=== PATIENT | female | born 1985 | race Caucasian/White ===

== ENCOUNTER 2017-07-26 10:18 | Inpatient (IN) | payer MEDICAID ==
[2017-07-26] MEDS ORDERED: Methylergonovine 0.2 MG/1 ML Amp IM PRN (10:39)
[2017-07-26] MEDS ORDERED: Butorphanol 1 MG/ML SDV IVPUSH PRN (10:39)
[2017-07-26] MEDS ORDERED: Water For Irrigation,Sterile 1,000 ML Container IRR PRN (10:39)
[2017-07-26] MEDS ORDERED: Misoprostol 200 MCG Tab PO PRN (10:39)
[2017-07-26] MEDS ORDERED: Lidocaine 1% 50 ML MDV INJECT PRN (10:39)
[2017-07-26] MEDS ORDERED: Sodium Chloride 0.9% 2.5 ML Syringe FLUSH PRN (10:39)
[2017-07-26] MEDS ORDERED: Sodium Chloride 0.9% 10 ML Syringe FLUSH PRN (10:39)
[2017-07-26] MEDS ORDERED: Carboprost Tromethamine 250 MCG/1 ML Amp IM PRN (10:39)
[2017-07-26] MEDS ORDERED: Oxytocin/Lactated Ringers 30 UNIT/500 ML BAG IV SCH ×2 (10:45)
[2017-07-26] MEDS ORDERED: Ampicillin 2 GM in Sodium Chloride 0.9% 100 ML IV ONE (11:00)
[2017-07-26] MEDS: Lactated Ringers 1,000 ML IV SCH ×3 (11:20→16:46)
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
[2017-07-26] MEDS ORDERED: Ampicillin 1 GM in Sodium Chloride 0.9% 50 ML IV SCH (15:00)
[2017-07-26] MEDS ORDERED: Ropivacaine HCl/PF 100 ML ONE (15:59)
[2017-07-26] MEDS ORDERED: fentaNYL 100 MCG/2 ML SDV ONE (15:59)
[2017-07-26] MEDS ORDERED: Acetaminophen 500 MG Tab PO PRN ×2 (18:03)
[2017-07-26] MEDS ORDERED: Witch Hazel Medicated Pads 40/Jar TOP PRN (18:03)
[2017-07-26] MEDS ORDERED: Lanolin 100% Cream 7 GM Tube TOP PRN (18:03)
[2017-07-26] MEDS ORDERED: Docusate Sodium 100 MG Cap PO PRN (18:03)
[2017-07-26] MEDS ORDERED: oxyCODONE 5 MG Tab PO PRN (18:03)
[2017-07-26] MEDS ORDERED: Ibuprofen 400 MG Tab PO PRN (18:03)
[2017-07-26] MEDS ORDERED: Benzocaine/Menthol 20%-0.5% Spray 78 GM Cannister TOP PRN (18:03)
[2017-07-26] MEDS ORDERED: Bisacodyl 10 MG Supp RECTAL PRN (18:03)
[2017-07-26] MEDS: Ibuprofen 800 MG Tab PO PRN (22:46)
--- NOTE | 2017-07-27 06:29 | PCM48HPAN ---
Post Anesthesia Note - EVALUATION WITHIN 48HRS OF ANESTHETIC Vital Signs in Normal Range: Yes Patient Participated in Evaluation: Yes Respiratory Function Stable: Yes Airway Patent: Yes Cardiovascular Function Stable: Yes Hydration Status Stable: Yes Pain Control Satisfactory: Yes Nausea and Vomiting Control Satisfactory: Yes Mental Status Recovered: Yes
--- NOTE | 2017-07-27 06:29 | PCM.POSTAN ---
POST ANESTHESIA ASSESSMENT - MENTAL STATUS Mental Status: Alert - RESPIRATORY Respiratory Status: Respiratory Rate WNL, O2 Saturation Stable - CARDIOVASCULAR CV Status: Pulse Rate WNL, Blood Pressure Stable - GASTROINTESTINAL GI Status: No Symptoms - POST OP HYDRATION Hydration Status: Adequate & Stable
[2017-07-27] MEDS: Ibuprofen 800 MG Tab PO PRN ×2 (06:43→14:34)
--- NOTE | 2017-07-27 08:03 | PCM.PNPP ---
<Babar Salazar - Last Filed: 07/27/17 08:04> - General Info Date of Service: 07/27/17 Admission Dx/Problem (Free Text): 40/0 weeks gestation elective induction of labor Subjective Update: Patient is doing well today without concerns. Pain is well controlled with Motrin and Tylenol. Patient is urinating without difficulty and has had a bowel movement. without difficulty. Pt denies chest pain, shortness of breath, fever, or chills. Functional Status: Reports: Pain Controlled, Tolerating Diet, Ambulating, Urinating - Review of Systems General: Reports: No Symptoms Pulmonary: Reports: No Symptoms Cardiovascular: Reports: No Symptoms Gastrointestinal: Reports: No Symptoms Genitourinary: Reports: No Symptoms - General Info Date of Service: 07/27/17 - Patient Data Vital Signs - Most Recent: Last Vital Signs Temp 36.9 C 07/27/17 01:00 Pulse 80 07/27/17 01:00 Resp 16 07/27/17 01:00 BP 116/59 L 07/27/17 01:00 Pulse Ox 97 07/27/17 01:00 Weight - Most Recent: 92.079 kg Lab Results - Last 24 Hours: Laboratory Results - last 24 hr 07/26/17 07/26/17 07/27/17 Range/Units 11:10 11:10 04:37 WBC 10.10 (4.0-11.0) K/uL RBC 4.03 L (4.30-5.90) M/uL Hgb 10.8 L 10.7 L (12.0-16.0) g/dL Hct 34.1 L 34.2 L (36.0-46.0) % MCV 84.6 (80.0-98.0) fL MCH 26.8 L (27.0-32.0) pg MCHC 31.7 (31.0-37.0) g/dL RDW Std Deviation 48.9 (28.0-62.0) fl RDW Coeff of Lit 16 H (11.0-15.0) % Plt Count 141 L (150-400) K/uL MPV 11.70 (7.40-12.00) fL Nucleated RBC % 0.0 /100WBC Nucleated RBCs # 0 K/uL Blood Type A POSITIVE Antibody Screen NEGATIVE Med Orders - Current: Current Medications Acetaminophen (Tylenol Extra Strength) 500 mg PO Q4H PRN PRN Reason: Pain Last Admin: 07/27/17 01:01 Dose: 500 mg Acetaminophen (Tylenol Extra Strength) 1,000 mg PO Q4H PRN PRN Reason: Pain Benzocaine/Menthol (Dermoplast Pain Relief 20%-0.5% [place]) 78 gm TOP ASDIRECTED PRN PRN Reason: Perineal Comfort Measure Bisacodyl (Dulcolax) 10 mg RECTAL .ONCE PRN PRN Reason: Constipation Carboprost Tromethamine (Hemabate Ds) 250 mcg IM ASDIRECTED PRN PRN Reason: Post Hemorrhage Docusate Sodium (Colace) 100 mg PO BID PRN PRN Reason: Constipation Emollient Ointment (Lansinoh Hpa) 0 gm TOP ASDIRECTED PRN PRN Reason: Sore Nipples Lactated Ringer's (Ringers, Lactated) 1,000 mls @ 150 mls/hr IV ASDIRECTED JOAN Last Admin: 07/26/17 16:46 Dose: 150 mls/hr Oxytocin/Lactated Ringer's (Pitocin In Lr 30 Units/500 Ml) 30 unit in 500 mls @ 2 mls/hr IV TITRATE JOAN; 2 MUNITS/MIN PRN Reason: Protocol Last Titration: 07/26/17 16:28 Dose: 10 munits/min, 10 mls/hr Ibuprofen (Motrin) 400 mg PO Q4H PRN PRN Reason: Pain Ibuprofen (Motrin) 800 mg PO Q6H PRN PRN Reason: Pain Last Admin: 07/27/17 06:43 Dose: 800 mg Methylergonovine Maleate (Methergine) 0.2 mg IM ASDIRECTED PRN PRN Reason: Post Hemorrhage Misoprostol (Cytotec) 200 mcg PO .ONCE PRN PRN Reason: Post Hemorrhage Oxycodone HCl (Oxycodone) 5 mg PO Q2H PRN PRN Reason: Pain Last Admin: 07/27/17 01:02 Dose: 5 mg Sodium Chloride (Saline Flush) 10 ml FLUSH ASDIRECTED PRN PRN Reason: Keep Vein Open Sodium Chloride (Saline Flush) 2.5 ml FLUSH ASDIRECTED PRN PRN Reason: Keep Vein Open Witch Roopa (Tucks) 1 pad TOP ASDIRECTED PRN PRN Reason: comfort care Discontinued Medications Butorphanol Tartrate (Stadol) 1 mg IVPUSH Q1H PRN PRN Reason: Pain Fentanyl (Sublimaze) Confirm Administered Dose 100 mcg .ROUTE .STK-MED ONE Stop: 07/26/17 16:00 Ampicillin Sodium 2 gm/ Sodium (Chloride) 100 mls @ 200 mls/hr IV ONETIME ONE Stop: 07/26/17 11:29 Last Admin: 07/26/17 11:40 Dose: 200 mls/hr Ampicillin Sodium 1 gm/ Sodium (Chloride) 50 mls @ 100 mls/hr IV Q4H JOAN Last Admin: 07/26/17 15:41 Dose: 100 mls/hr Oxytocin/Lactated Ringer's (Pitocin In Lr 30 Units/500 Ml) 30 unit in 500 mls @ 999 mls/hr IV TITRATE JOAN PRN Reason: 999 MUNITS/MIN Stop: 07/26/17 11:16 Ropivacaine (Naropin 0.2%) Confirm Administered Dose 100 mls @ as directed .ROUTE .STK-MED ONE Stop: 07/26/17 16:00 Lidocaine HCl (Xylocaine 1%) 50 ml INJECT .ONCE PRN PRN Reason: Laceration repair Sterile Water (Sterile Water For Irrigation) 1,000 ml IRR ASDIRECTED PRN PRN Reason: delivery - Infant Interaction Disposition, : [place] in Room with Family Interaction: Holding Infant Infant Feeding: Breastfed Infant; Nursed Well Support Person: , Other (see below) (Daughter) - Recovery Exam Fundal Tone: Firm Fundal Level: At Umbilicus Fundal Placement: Midline Lochia Amount: Scant Lochia Color: Rubra/Red Perineum Description: Intact, Minimal Bruising/Swelling Episiotomy/Laceration: None Bladder Status: Voiding - Exam General: Alert, Oriented Lungs: Clear to Auscultation, Normal Respiratory Effort. No: Crackles, Rales, Rhonchi Cardiovascular: Regular Rate, Regular Rhythm. No: Murmurs, Gallops, Rubs GI/Abdominal Exam: Normal Bowel Sounds, Soft (Uterus midling, firm, fundus at umbilicus, mild tenderness to palpation) - Problem List & Annotations (1) Vaginal delivery SNOMED Code(s): 143311232 Code(s): O80 - ENCOUNTER FOR FULL-TERM UNCOMPLICATED DELIVERY Status: Acute Priority: High Current Visit: No - Problem List Review Problem List Initiated/Reviewed/Updated: Yes - Assessment Assessment:: 40/0 elective induction of labor, spontaneous vaginal delivery, PPD 1 Pain well controlled Urinating well No concerns - Plan Plan:: Routine cares. Continue current pain management. Continue to support and frequent ambulation. <Cyndy Mosley - Last Filed: 07/27/17 08:49> - Patient Data Vital Signs - Most Recent: Last Vital Signs Temp 36.9 C 07/27/17 01:00 Pulse 80 07/27/17 01:00 Resp 16 07/27/17 01:00 BP 116/59 L 07/27/17 01:00 Pulse Ox 97 07/27/17 01:00 Lab Results - Last 24 Hours: Laboratory Results - last 24 hr 07/26/17 07/26/17 07/27/17 Range/Units 11:10 11:10 04:37 WBC 10.10 (4.0-11.0) K/uL RBC 4.03 L (4.30-5.90) M/uL Hgb 10.8 L 10.7 L (12.0-16.0) g/dL Hct 34.1 L 34.2 L (36.0-46.0) % MCV 84.6 (80.0-98.0) fL MCH 26.8 L (27.0-32.0) pg MCHC 31.7 (31.0-37.0) g/dL RDW Std Deviation 48.9 (28.0-62.0) fl RDW Coeff of Lit 16 H (11.0-15.0) % Plt Count 141 L (150-400) K/uL MPV 11.70 (7.40-12.00) fL Nucleated RBC % 0.0 /100WBC Nucleated RBCs # 0 K/uL Blood Type A POSITIVE Antibody Screen NEGATIVE Med Orders - Current: Current Medications Acetaminophen (Tylenol Extra Strength) 500 mg PO Q4H PRN PRN Reason: Pain Last Admin: 07/27/17 01:01 Dose: 500 mg Acetaminophen (Tylenol Extra Strength) 1,000 mg PO Q4H PRN PRN Reason: Pain Benzocaine/Menthol (Dermoplast Pain Relief 20%-0.5% [place]ba) 78 gm TOP ASDIRECTED PRN PRN Reason: Perineal Comfort Measure Bisacodyl (Dulcolax) 10 mg RECTAL .ONCE PRN PRN Reason: Constipation Carboprost Tromethamine (Hemabate Ds) 250 mcg IM ASDIRECTED PRN PRN Reason: Post Hemorrhage Docusate Sodium (Colace) 100 mg PO BID PRN PRN Reason: Constipation Emollient Ointment (Lansinoh Hpa) 0 gm TOP ASDIRECTED PRN PRN Reason: Sore Nipples Lactated Ringer's (Ringers, Lactated) 1,000 mls @ 150 mls/hr IV ASDIRECTED JOAN Last Admin: 07/26/17 16:46 Dose: 150 mls/hr Oxytocin/Lactated Ringer's (Pitocin In Lr 30 Units/500 Ml) 30 unit in 500 mls @ 2 mls/hr IV TITRATE JOAN; 2 MUNITS/MIN PRN Reason: Protocol Last Titration: 07/26/17 16:28 Dose: 10 munits/min, 10 mls/hr Ibuprofen (Motrin) 400 mg PO Q4H PRN PRN Reason: Pain Ibuprofen (Motrin) 800 mg PO Q6H PRN PRN Reason: Pain Last Admin: 07/27/17 06:43 Dose: 800 mg Methylergonovine Maleate (Methergine) 0.2 mg IM ASDIRECTED PRN PRN Reason: Post Hemorrhage Misoprostol (Cytotec) 200 mcg PO .ONCE PRN PRN Reason: Post Hemorrhage Oxycodone HCl (Oxycodone) 5 mg PO Q2H PRN PRN Reason: Pain Last Admin: 07/27/17 01:02 Dose: 5 mg Sodium Chloride (Saline Flush) 10 ml FLUSH ASDIRECTED PRN PRN Reason: Keep Vein Open Sodium Chloride (Saline Flush) 2.5 ml FLUSH ASDIRECTED PRN PRN Reason: Keep Vein Open Witch Roopa (Tucks) 1 pad TOP ASDIRECTED PRN PRN Reason: comfort care Discontinued Medications Butorphanol Tartrate (Stadol) 1 mg IVPUSH Q1H PRN PRN Reason: Pain Fentanyl (Sublimaze) Confirm Administered Dose 100 mcg .ROUTE .[facility]-MED ONE Stop: 07/26/17 16:00 Ampicillin Sodium 2 gm/ Sodium (Chloride) 100 mls @ 200 mls/hr IV ONETIME ONE Stop: 07/26/17 11:29 Last Admin: 07/26/17 11:40 Dose: 200 mls/hr Ampicillin Sodium 1 gm/ Sodium (Chloride) 50 mls @ 100 mls/hr IV Q4H JOAN Last Admin: 07/26/17 15:41 Dose: 100 mls/hr Oxytocin/Lactated Ringer's (Pitocin In Lr 30 Units/500 Ml) 30 unit in 500 mls @ 999 mls/hr IV TITRATE JONA PRN Reason: 999 MUNITS/MIN Stop: 07/26/17 11:16 Ropivacaine (Naropin 0.2%) Confirm Administered Dose 100 mls @ as directed .ROUTE .STK-MED ONE Stop: 07/26/17 16:00 Lidocaine HCl (Xylocaine 1%) 50 ml INJECT .ONCE PRN PRN Reason: Laceration repair Sterile Water (Sterile Water For Irrigation) 1,000 ml IRR ASDIRECTED PRN PRN Reason: delivery - My Orders Last 24 Hours: My Active Orders 07/26/17 10:39 Carboprost Tromethamine [Hemabate DS] 250 mcg IM ASDIRECTED PRN Methylergonovine [Methergine] 0.2 mg IM ASDIRECTED PRN Misoprostol [Cytotec] 200 mcg PO .ONCE PRN Sodium Chloride 0.9% [Saline Flush] 10 ml FLUSH ASDIRECTED PRN Sodium Chloride 0.9% [Saline Flush] 2.5 ml FLUSH ASDIRECTED PRN Resuscitation Status Routine 07/26/17 10:40 Patient Status [ADT] Routine Oxygen Therapy [RC] ASDIRECTED Vital Signs [RC] PER UNIT ROUTINE Vital Signs [RC] PER UNIT ROUTINE Peripheral IV Insertion Adult [OM.PC] Routine 07/26/17 10:45 Lactated Ringers [Ringers, Lactated] 1,000 ml IV ASDIRECTED Oxytocin/Lactated Ringers [Pitocin in LR 30 Units/500 ML] 30 unit in 500 ml IV TITRATE Medication Administration Instruction [OM.PC] Q3H 07/26/17 18:03 May Shower [RC] ASDIRECTED Up ad Lary [RC] ASDIRECTED Vital Signs [RC] PER UNIT ROUTINE Acetaminophen [Tylenol Extra Strength] 1,000 mg PO Q4H PRN Acetaminophen [Tylenol Extra Strength] 500 mg PO Q4H PRN Benzocaine/Menthol [Dermoplast Pain Relief 20%-0.5% [place]] 78 gm TOP ASDIRECTED PRN Bisacodyl [Dulcolax] 10 mg RECTAL .ONCE PRN Docusate Sodium [Colace] 100 mg PO BID PRN Ibuprofen [Motrin] 400 mg PO Q4H PRN Ibuprofen [Motrin] 800 mg PO Q6H PRN Lanolin [Lansinoh HPA] See Dose Instructions TOP ASDIRECTED PRN Witch Roopa [Tucks] 1 pad TOP ASDIRECTED PRN oxyCODONE 5 mg PO Q2H PRN Assess Lochia [WOMSER] Per Unit Routine Assess Uterine Involution [WOMSER] Per Unit Routine Breast Pump [WOMSER] Per Unit Routine Ice Therapy [OM.PC] Per Unit Routine Perineal Care [OM.PC] Per Unit Routine Peripheral IV Discontinue [OM.PC] Routine Sitz Bath [OM.PC] Per Unit Routine 07/26/17 Dinner Regular Diet [DIET] - Plan Plan:: Patient seen and examined--agree with above. Patient would like to go home later today. Infection and bleeding warnings reviewed. Follow up at [facility] 6 weeks. Discharge instructions reviewed. Discharge to home today.
--- NOTE | 2017-07-27 08:17 | OR ---
SURGEON: Cyndy Mosley M.D. DATE OF PROCEDURE: 07/26/2017 PREOPERATIVE DIAGNOSES: 1. A 40-week intrauterine . 2. Elective induction of labor. POSTOPERATIVE DIAGNOSES: 1. A 40-week intrauterine . 2. Elective induction of labor. PROCEDURE: Spontaneous vaginal delivery with intact perineum. POSTDOCTORAL RESEARCH FELLOW: BELEN Nieves. ESTIMATED BLOOD LOSS: 250 mL. ANESTHESIA: Epidural. COMPLICATIONS: None. FINDINGS: Term male. score of 8 at 1 minute, 10 at 5 minutes. Weight is pending. Spontaneous delivery, intact placenta, 3-vessel cord. DISPOSITION: to nursery, mom in LDRP, stable. PROCEDURE DETAILS: Jasmyne is a 31-year-old, G7, P4, A2 at 40 weeks' gestation, presents today for scheduled induction of labor due to favorable cervix, who was admitted to the hospital, has history of rapid labor. Therefore, upon admission, IV was initiated. Labs were drawn. She is group beta strep positive. Initiated ampicillin prophylaxis. With Pitocin induction, the patient became increasingly uncomfortable. Shortly after 1600 hours, was requesting an epidural. She underwent this satisfactorily, became more comfortable. She had received 2 doses of ampicillin, and therefore, shortly after 1700 hours, amniotomy was performed. At that time, she was found to be 5-6 cm, 90% effaced, -2 station. Clear fluid was returned. The patient continued to progress nicely, and within the next approximately 20 minutes to complete, 100% effaced, at +2 station, I was called for delivery. Upon my arrival, the patient was placed in modified dorsolithotomy position and was prepped and draped in the usual aseptic manner. With the next two contractions, she was able to push to deliver 's head atraumatically, spontaneously, followed by anterior shoulder and posterior shoulder and remainder of body without difficulty. Nuchal cord x1 was reduced manually. The infant's oropharynx and nares bulb suctioned. Cord clamped x2 and cut. was handed off to his mother with attending nursing staff at her side. Cord arterial, cord venous, cord blood sampling was obtained. Light suprapubic pressure was applied while the placenta was delivered spontaneously intact. Vigorous fundal uterine massage was applied while 30 units of Pitocin was delivered in 500 mL IV fluid. Upon inspection of cervix, vaginal sidewalls, perineum, these were found to be intact. The patient tolerated the procedure well. Sponge count is correct. The patient will remain in LDRP. Hemostasis evident. Infant to nursery. ALDO / DEREK /[id number]
[2017-07-27 16:50] VITALS: BP 117/78
== END 2017-07-27 20:30 | disposition home or self-care (01) | DRG 775 ==
LOC: MW.OBCHECK 10:18 → MW.OB 10:21 → MW.OBCHECK 11:59 → OBSVTOIN 17:52 → MW.OB 22:30
PROVIDERS: ADMIT Obstetrics & Gynecology; ATTEND Obstetrics & Gynecology
PROC: 10E0XZZ Delivery of Products of Conception, External Approach (ICD-10-PCS; principal; 2017-07-26)
PROC: 3E033VJ Introduction of Other Hormone into Peripheral Vein, Percutaneous Approach (ICD-10-PCS; 2017-07-26)
PROC: 10907ZC Drainage of Amniotic Fluid, Therapeutic from Products of Conception, Via Natural or Artificial Opening (ICD-10-PCS; 2017-07-26)
DX: O99.824 Streptococcus B carrier state complicating childbirth (principal); O69.1XX0 Labor and delivery complicated by cord around neck, with compression, not applicable or unspecified; Z3A.40 40 weeks gestation of pregnancy; Z37.0 Single live birth
CPT/HCPCS: 36415; 59025; 85014; 85018; 85027; 86850; 86900; 86901; A9270-GY; J0290; J7030; J7050; J7120

== ENCOUNTER 2018-08-27 05:54 | Inpatient (IN) | payer MEDICAID ==
[2018-08-27] MEDS ORDERED: Misoprostol 200 MCG Tab PO PRN (06:08)
[2018-08-27] MEDS ORDERED: Ampicillin 2 GM in Sodium Chloride 0.9% 100 ML IV ONE (06:08)
[2018-08-27] MEDS ORDERED: Sodium Chloride 0.9% 10 ML Syringe FLUSH PRN (06:08)
[2018-08-27] MEDS ORDERED: Water For Irrigation,Sterile 1,000 ML Container IRR PRN (06:08)
[2018-08-27] MEDS ORDERED: Terbutaline 1 MG/ML SDV SUBCUT PRN (06:08)
[2018-08-27] MEDS ORDERED: Sodium Chloride 0.9% 2.5 ML Syringe FLUSH PRN (06:08)
[2018-08-27] MEDS ORDERED: Butorphanol 1 MG/ML SDV IVPUSH PRN (06:08)
[2018-08-27] MEDS ORDERED: Carboprost Tromethamine 250 MCG/1 ML Amp IM PRN (06:08)
[2018-08-27] MEDS ORDERED: Tranexamic Acid 1,000 MG in Sodium Chloride 0.9% 100 ML IV PRN (06:08)
[2018-08-27] MEDS ORDERED: Lidocaine 1% 50 ML MDV INJECT PRN (06:08)
[2018-08-27] MEDS ORDERED: Methylergonovine 0.2 MG/1 ML Amp IM PRN (06:08)
[2018-08-27] MEDS ORDERED: Oxytocin/0.9 % Sodium Chloride 30 UNIT/500 ML BAG IV SCH ×2 (06:15)
[2018-08-27] MEDS: Lactated Ringers 1,000 ML IV SCH ×3 (06:30→12:16)
[2018-08-27] MEDS ORDERED: Ampicillin 1 GM in Sodium Chloride 0.9% 50 ML IV SCH (10:40)
[2018-08-27] MEDS ORDERED: Ropivacaine 0.2% 2 MG/ML 20 ML SDV ONE (11:49)
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
[2018-08-27] MEDS ORDERED: Acetaminophen 500 MG Tab PO PRN ×2 (14:13)
[2018-08-27] MEDS ORDERED: Ibuprofen 400 MG Tab PO PRN (14:13)
[2018-08-27] MEDS ORDERED: Benzocaine/Menthol 20%-0.5% Spray 78 GM Cannister TOP PRN (14:13)
[2018-08-27] MEDS ORDERED: Docusate Sodium 100 MG Cap PO PRN (14:13)
[2018-08-27] MEDS ORDERED: Lanolin 100% Cream 7 GM Tube TOP PRN (14:13)
[2018-08-27] MEDS ORDERED: oxyCODONE 5 MG Tab PO PRN (14:13)
[2018-08-27] MEDS ORDERED: Ondansetron 4 MG/2 ML SDV IVPUSH PRN (14:13)
[2018-08-27] MEDS ORDERED: Witch Hazel Medicated Pads 40/Jar TOP PRN (14:13)
[2018-08-27] MEDS ORDERED: Aluminum Hydroxide/Magnesium Hydroxide/Simethicone Susp 30 ML Cup PO PRN (14:13)
[2018-08-27] MEDS ORDERED: Bisacodyl 10 MG Supp RECTAL PRN (14:13)
--- NOTE | 2018-08-27 14:19 | PCM.DEL ---
L & D Note - General Info Date of Service: 08/27/18 - Delivery Note Labor: Induced by Oxytocin Delivery Outcome: Livebirth Infant Delivery Method: Spontaneous Vaginal Delivery-Single Nuchal Cord: None Amniotic Fluid Description: Clear Episiotomy Type: None Laceration: None Placenta: Intact, Spontaneous Cord: 3 Vessels : Bulb Syringe Provider: Cyndy Mosley Score 1 min: 9 Score 5 min: 10 Induction Criteria - Induction Gestational Age >/= 39 wks: Yes Estimated Pelvis: Reports: Adequate Reassuring Monitoring Strip: Yes - General Info Date of Service: 08/27/18 - Patient Data Weight - Most Recent: 92.986 kg Lab Results Last 24 Hours: Laboratory Results - last 24 hr 08/27/18 08/27/18 Range/Units 06:25 06:25 WBC 10.38 (4.0-11.0) K/uL RBC 3.89 L (4.30-5.90) M/uL Hgb 10.7 L (12.0-16.0) g/dL Hct 33.3 L (36.0-46.0) % MCV 85.6 (80.0-98.0) fL MCH 27.5 (27.0-32.0) pg MCHC 32.1 (31.0-37.0) g/dL RDW Std Deviation 48.7 (28.0-62.0) fl RDW Coeff of Lit 16 H (11.0-15.0) % Plt Count 135 L (150-400) K/uL MPV 11.20 (7.40-12.00) fL Nucleated RBC % 0.0 /100WBC Nucleated RBCs # 0 K/uL Blood Type A POSITIVE Antibody Screen NEGATIVE Med Orders - Current: Current Medications Acetaminophen (Tylenol Extra Strength) 500 mg PO Q4H PRN PRN Reason: Pain Acetaminophen (Tylenol Extra Strength) 1,000 mg PO Q4H PRN PRN Reason: Pain Al Hydroxide/Mg Hydroxide (Mag-Al Plus) 30 ml PO Q8H PRN PRN Reason: Heartburn Benzocaine/Menthol (Dermoplast Pain Relief 20%-0.5% [place]) 78 gm TOP ASDIRECTED PRN PRN Reason: Perineal Comfort Measure Bisacodyl (Dulcolax) 10 mg RECTAL ONETIME PRN PRN Reason: Constipation Carboprost Tromethamine (Hemabate Ds) 250 mcg IM ASDIRECTED PRN PRN Reason: Post Hemorrhage Docusate Sodium (Colace) 100 mg PO BID PRN PRN Reason: Constipation Emollient Ointment (Lansinoh Hpa) 0 gm TOP ASDIRECTED PRN PRN Reason: Sore Nipples Lactated Ringer's (Ringers, Lactated) 1,000 mls @ 150 mls/hr IV ASDIRECTED JOAN Last Admin: 08/27/18 12:16 Dose: 150 mls/hr Oxytocin/Sodium Chloride (Oxytocin 30 Unit/500 Ml-Ns) 30 unit in 500 mls @ 999 mls/hr IV TITRATE JOAN Oxytocin/Sodium Chloride (Oxytocin 30 Unit/500 Ml-Ns) 30 unit in 500 mls @ 2 mls/hr IV TITRATE JOAN; Protocol Last Titration: 08/27/18 12:15 Dose: 18 munits/min, 18 mls/hr Tranexamic Acid 1,000 mg/ (Sodium Chloride) 110 mls @ 660 mls/hr IV ONETIME PRN PRN Reason: Bleeding Ibuprofen (Motrin) 400 mg PO Q4H PRN PRN Reason: Pain Ibuprofen (Motrin) 800 mg PO Q6H PRN PRN Reason: Pain Methylergonovine Maleate (Methergine) 0.2 mg IM ASDIRECTED PRN PRN Reason: Post Hemorrhage Ondansetron HCl (Zofran) 4 mg IVPUSH Q6H PRN PRN Reason: Nausea/Vomiting Oxycodone HCl (Oxycodone) 5 mg PO Q2H PRN PRN Reason: Pain Sodium Chloride (Saline Flush) 10 ml FLUSH ASDIRECTED PRN PRN Reason: Keep Vein Open Sodium Chloride (Saline Flush) 2.5 ml FLUSH ASDIRECTED PRN PRN Reason: Keep Vein Open Sterile Water (Sterile Water For Irrigation) 1,000 ml IRR ASDIRECTED PRN PRN Reason: delivery Witch Roopa (Tucks) 1 pad TOP ASDIRECTED PRN PRN Reason: comfort care Discontinued Medications Butorphanol Tartrate (Stadol) 1 mg IVPUSH ASDIRECTED PRN PRN Reason: Pain Ampicillin Sodium 2 gm/ Sodium (Chloride) 100 mls @ 200 mls/hr IV ONETIME ONE Stop: 08/27/18 06:37 Last Admin: 08/27/18 06:38 Dose: 200 mls/hr Ampicillin Sodium 1 gm/ Sodium (Chloride) 50 mls @ 100 mls/hr IV Q4H JOAN Last Admin: 08/27/18 10:53 Dose: 100 mls/hr Fentanyl/Bupivacaine HCl (Prpmmiip-Xazer-Rq 2 Mcg/Ml-0.125%) Confirm Administered Dose 100 mls @ as directed EP .STK-MED ONE Stop: 08/27/18 11:49 Lidocaine HCl (Xylocaine 1%) 50 ml INJECT ONETIME PRN PRN Reason: Laceration repair Misoprostol (Cytotec) 200 mcg PO ONETIME PRN PRN Reason: Post Hemorrhage Ropivacaine (Naropin 0.2%) Confirm Administered Dose 20 ml .ROUTE .STK-MED ONE Stop: 08/27/18 11:50 Terbutaline Sulfate (Brethine) 0.25 mg SUBCUT ASDIRECTED PRN PRN Reason: Tacysystole - Problem List & Annotations (1) Vaginal delivery SNOMED Code(s): 781624298 Code(s): O80 - ENCOUNTER FOR FULL-TERM UNCOMPLICATED DELIVERY Status: Acute Priority: High Current Visit: No - Problem List Review Problem List Initiated/Reviewed/Updated: Yes - My Orders Last 24 Hours: My Active Orders 08/27/18 06:08 Patient Status [ADT] Routine Bedrest Bathroom Privileges [RC] ASDIRECTED Communication Order [RC] ASDIRECTED May Shower [RC] ASDIRECTED Notify Provider [RC] PRN Oxygen Therapy [RC] ASDIRECTED Up ad Lary [RC] ASDIRECTED Vital Signs [RC] PER UNIT ROUTINE Carboprost Tromethamine [Hemabate DS] 250 mcg IM ASDIRECTED PRN Methylergonovine [Methergine] 0.2 mg IM ASDIRECTED PRN Sodium Chloride 0.9% [Saline Flush] 10 ml FLUSH ASDIRECTED PRN Sodium Chloride 0.9% [Saline Flush] 2.5 ml FLUSH ASDIRECTED PRN Tranexamic Acid [Cyklokapron] 1,000 mg Sodium Chloride 0.9% [Normal Saline] 100 ml IV ONETIME Water For Irrigation,Sterile [Sterile Water for Irrigation] 1,000 ml IRR ASDIRECTED PRN Peripheral IV Insertion Adult [OM.PC] Routine Resuscitation Status Routine 08/27/18 06:15 Lactated Ringers [Ringers, Lactated] 1,000 ml IV ASDIRECTED Oxytocin/0.9 % Sodium Chloride [Oxytocin 30 Unit/500 ML-NS] 30 unit in 500 ml IV TITRATE Oxytocin/0.9 % Sodium Chloride [Oxytocin 30 Unit/500 ML-NS] 30 unit in 500 ml IV TITRATE Medication Administration Instruction [OM.PC] Q3H 08/27/18 14:02 BLOOD GAS ARTERIAL UMBILICAL [BG] DAILY BLOOD GAS VENOUS UMBILICAL [BG] Urgent 08/27/18 14:13 Patient Status [ADT] Routine May Shower [RC] ASDIRECTED Up ad Lary [RC] ASDIRECTED Vital Signs [RC] PER UNIT ROUTINE Acetaminophen [Tylenol Extra Strength] 1,000 mg PO Q4H PRN Acetaminophen [Tylenol Extra Strength] 500 mg PO Q4H PRN Alum Hydrox/Mag Hydrox/Simeth [Mag-Al Plus] 30 ml PO Q8H PRN Benzocaine/Menthol [Dermoplast Pain Relief 20%-0.5% [place]] 78 gm TOP ASDIRECTED PRN Bisacodyl [Dulcolax] 10 mg RECTAL ONETIME PRN Docusate Sodium [Colace] 100 mg PO BID PRN Ibuprofen [Motrin] 400 mg PO Q4H PRN Ibuprofen [Motrin] 800 mg PO Q6H PRN Lanolin [Lansinoh HPA] See Dose Instructions TOP ASDIRECTED PRN Ondansetron [Zofran] 4 mg IVPUSH Q6H PRN Witch Roopa [Tucks] 1 pad TOP ASDIRECTED PRN oxyCODONE 5 mg PO Q2H PRN Assess Lochia [WOMSER] Per Unit Routine Assess Uterine Involution [WOMSER] Per Unit Routine Peripheral IV Discontinue [OM.PC] Routine 08/27/18 14:14 Ice Therapy [OM.PC] Per Unit Routine Perineal Care [OM.PC] Per Unit Routine Sitz Bath [OM.PC] Per Unit Routine 08/27/18 Lunch Regular Diet [DIET] 08/28/18 05:11 HEMOGLOBIN/HEMATOCRIT,HH [HEME] Timed
[2018-08-27] MEDS: Ibuprofen 800 MG Tab PO PRN (15:13)
--- NOTE | 2018-08-27 21:30 | OR ---
SURGEON: Cyndy Mosley M.D. DATE OF PROCEDURE: 08/27/2018 PREOPERATIVE DIAGNOSES: 1. A 39-week intrauterine . 2. Elective induction of labor due to multiparous, lives remote from the hospital. 3. Group B beta strep positive. POSTOPERATIVE DIAGNOSES: 1. A 39-week intrauterine . 2. Elective induction of labor due to multiparous, lives remote from the hospital. 3. Group B beta strep positive. PROCEDURE: Spontaneous vaginal delivery with intact perineum. ANESTHESIA: Epidural. ESTIMATED BLOOD LOSS: 300 mL. COMPLICATIONS: None. FINDINGS: Term male, Apgars 9 at one minute, 10 at five minutes. Weight is pending. Spontaneous delivery, intact placenta, 3-vessel cord. DISPOSITION: to nursery, mom in LDRP. PROCEDURE IN DETAIL: Jasmyne is a 32-year-old G4, P3, at 39 weeks' gestational age, who presents this morning for a scheduled induction of labor due to living remote from the hospital, multiparous with history of rapid labor and she is group B beta strep positive. The patient was admitted, routine labs were drawn, and IV hydration was initiated. Category 1 heart tones. The patient was initiated on Pitocin, responded nicely to this. Also received her ampicillin prophylaxis for her group B beta strep positive status. The patient became increasingly uncomfortable in the late morning hours, underwent regional anesthesia from epidural, became more comfortable. Shortly before 1:00, the patient was found to be 7 cm, 70% effaced, -2 station. She had received 2 doses of IV antibiotic. Therefore, amniotic clear fluid was returned. The patient continued to progress. Over the next hour, progressed to complete, 100% effaced and at a +2 station, I was called for delivery. Upon my arrival, the patient was placed in modified dorsal lithotomy position, was prepped and draped in the usual aseptic fashion. With the next contraction, she was able to push and deliver 's head atraumatically and spontaneously, followed by anterior shoulder and pushed remaining body without difficulty. The infant's oropharynx and nares were bulb suctioned. The cord was clamped x2. Infant was vigorous and crying and handed off to his mother with the attending nursing staff at her side. Cord arterial, cord venous, cord blood sampling obtained. Light suprapubic pressure was applied while the placenta was delivered spontaneously intact. Vigorous fundal uterine massage was then applied while 30 units Pitocin was delivered in 500 mL of IV fluid. Upon inspection of cervix, vaginal sidewalls, and perineum, these were found to be intact. Sponge count was correct. Hemostasis remained evident. Uterus remained firm. The patient remained in LDRP, to nursery. ALDO / DEREK /[id number]
[2018-08-28] MEDS: Ibuprofen 800 MG Tab PO PRN ×2 (00:37→06:22)
--- NOTE | 2018-08-28 07:55 | PCM.PNPP ---
<Delano Shea - Last Filed: 08/28/18 07:50> - General Info Date of Service: 08/28/18 Admission Dx/Problem (Free Text): 39 wk Functional Status: Reports: Pain Controlled, Tolerating Diet, Ambulating, Urinating - Review of Systems General: Denies: Fever, Chills HEENT: Reports: No Symptoms Pulmonary: Denies: Shortness of Breath, Pleuritic Chest Pain Cardiovascular: Denies: Chest Pain, Palpitations Gastrointestinal: Reports: No Symptoms, Flatus Genitourinary: Reports: No Symptoms Musculoskeletal: Reports: No Symptoms Skin: Reports: No Symptoms Neurological: Reports: No Symptoms Psychiatric: Reports: No Symptoms - General Info Date of Service: 08/28/18 - Patient Data Vital Signs - Most Recent: Last Vital Signs Temp 36.7 C 08/28/18 00:40 Pulse Resp 15 08/28/18 00:40 BP 136/78 08/28/18 00:40 Pulse Ox 98 08/28/18 00:40 Weight - Most Recent: 92.986 kg Lab Results - Last 24 Hours: Laboratory Results - last 24 hr 08/27/18 08/27/18 08/28/18 Range/Units 14:02 14:02 04:58 Hgb 10.6 L (12.0-16.0) g/dL Hct 33.2 L (36.0-46.0) % Cord ABG pH 7.305 (7.18-7.38) Cord ABG Base Excess -6 (-10--2) Cord VBG pH 7.232 L (7.25-7.45) Cord VBG Base Excess -5 (-10--2) Med Orders - Current: Current Medications Acetaminophen (Tylenol Extra Strength) 500 mg PO Q4H PRN PRN Reason: Pain Acetaminophen (Tylenol Extra Strength) 1,000 mg PO Q4H PRN PRN Reason: Pain Al Hydroxide/Mg Hydroxide (Mag-Al Plus) 30 ml PO Q8H PRN PRN Reason: Heartburn Benzocaine/Menthol (Dermoplast Pain Relief 20%-0.5% [place]) 78 gm TOP ASDIRECTED PRN PRN Reason: Perineal Comfort Measure Bisacodyl (Dulcolax) 10 mg RECTAL ONETIME PRN PRN Reason: Constipation Carboprost Tromethamine (Hemabate Ds) 250 mcg IM ASDIRECTED PRN PRN Reason: Post Hemorrhage Docusate Sodium (Colace) 100 mg PO BID PRN PRN Reason: Constipation Emollient Ointment (Lansinoh Hpa) 0 gm TOP ASDIRECTED PRN PRN Reason: Sore Nipples Lactated Ringer's (Ringers, Lactated) 1,000 mls @ 150 mls/hr IV ASDIRECTED JOAN Last Admin: 08/27/18 12:16 Dose: 150 mls/hr Oxytocin/Sodium Chloride (Oxytocin 30 Unit/500 Ml-Ns) 30 unit in 500 mls @ 999 mls/hr IV TITRATE JOAN Oxytocin/Sodium Chloride (Oxytocin 30 Unit/500 Ml-Ns) 30 unit in 500 mls @ 2 mls/hr IV TITRATE JOAN; Protocol Last Titration: 08/27/18 12:15 Dose: 18 munits/min, 18 mls/hr Tranexamic Acid 1,000 mg/ (Sodium Chloride) 110 mls @ 660 mls/hr IV ONETIME PRN PRN Reason: Bleeding Ibuprofen (Motrin) 400 mg PO Q4H PRN PRN Reason: Pain Ibuprofen (Motrin) 800 mg PO Q6H PRN PRN Reason: Pain Last Admin: 08/28/18 06:22 Dose: 800 mg Methylergonovine Maleate (Methergine) 0.2 mg IM ASDIRECTED PRN PRN Reason: Post Hemorrhage Ondansetron HCl (Zofran) 4 mg IVPUSH Q6H PRN PRN Reason: Nausea/Vomiting Oxycodone HCl (Oxycodone) 5 mg PO Q2H PRN PRN Reason: Pain Sodium Chloride (Saline Flush) 10 ml FLUSH ASDIRECTED PRN PRN Reason: Keep Vein Open Sodium Chloride (Saline Flush) 2.5 ml FLUSH ASDIRECTED PRN PRN Reason: Keep Vein Open Sterile Water (Sterile Water For Irrigation) 1,000 ml IRR ASDIRECTED PRN PRN Reason: delivery Witch Roopa (Tucks) 1 pad TOP ASDIRECTED PRN PRN Reason: comfort care Discontinued Medications Butorphanol Tartrate (Stadol) 1 mg IVPUSH ASDIRECTED PRN PRN Reason: Pain Ampicillin Sodium 2 gm/ Sodium (Chloride) 100 mls @ 200 mls/hr IV ONETIME ONE Stop: 08/27/18 06:37 Last Admin: 08/27/18 06:38 Dose: 200 mls/hr Ampicillin Sodium 1 gm/ Sodium (Chloride) 50 mls @ 100 mls/hr IV Q4H JOAN Last Admin: 08/27/18 10:53 Dose: 100 mls/hr Fentanyl/Bupivacaine HCl (Twyldwvl-Aznyt-Zr 2 Mcg/Ml-0.125%) Confirm Administered Dose 100 mls @ as directed EP .STK-MED ONE Stop: 08/27/18 11:49 Lidocaine HCl (Xylocaine 1%) 50 ml INJECT ONETIME PRN PRN Reason: Laceration repair Misoprostol (Cytotec) 200 mcg PO ONETIME PRN PRN Reason: Post Hemorrhage Ropivacaine (Naropin 0.2%) Confirm Administered Dose 20 ml .ROUTE .STK-MED ONE Stop: 08/27/18 11:50 Terbutaline Sulfate (Brethine) 0.25 mg SUBCUT ASDIRECTED PRN PRN Reason: Tacysystole - Interaction Infant Disposition, : at Bedside Interaction: Not Interacting Infant Feeding: Breastfed Infant; Nursed Well Support Person: Significant Other - Recovery Exam Fundal Tone: Firm Fundal Level: 1 Fingerbreadths Below Umbilicus Fundal Placement: Midline Lochia Amount: Scant Lochia Color: Rubra/Red Perineum Description: Intact, Minimal Bruising/Swelling Episiotomy/Laceration: Approximated Bladder Status: Voiding - Exam General: Alert, Oriented, Cooperative HEENT: Pupils Equal, Pupils Reactive Neck: Supple Lungs: Clear to Auscultation, Normal Respiratory Effort Cardiovascular: Regular Rate, Regular Rhythm, No Murmurs GI/Abdominal Exam: Normal Bowel Sounds, Soft, Tender Extremities: Normal Inspection Skin: Warm, Dry, Intact Neurological: No New Focal Deficit Psy/Mental Status: Alert, Normal Affect, Normal Mood - Problem List & Annotations (1) Vaginal delivery SNOMED Code(s): 281735867 Code(s): O80 - ENCOUNTER FOR FULL-TERM UNCOMPLICATED DELIVERY Status: Acute Priority: High Current Visit: No - Problem List Review Problem List Initiated/Reviewed/Updated: Yes - Assessment Assessment:: POD #1 s/p . Minimal pain and lochia. Breast feeding well. Discharge home today. - Plan Plan:: Discharge instructions reviewed. Pelvic rest for 6 weeks. Continue PNV while breast feeding. Can use OTC ibuprofen/tylenol as needed for pain. Instructed patient to call if she develops fever greater than 101 or bleeding through a large pad an hour. F/U with [facility] in 6 weeks. <DimitriCyndy Nathaniel - Last Filed: 08/28/18 09:25> - Patient Data Vital Signs - Most Recent: Last Vital Signs Temp 36.7 C 08/28/18 00:40 Pulse Resp 15 08/28/18 00:40 BP 136/78 08/28/18 00:40 Pulse Ox 98 08/28/18 00:40 Lab Results - Last 24 Hours: Laboratory Results - last 24 hr 08/27/18 08/27/18 08/28/18 Range/Units 14:02 14:02 04:58 Hgb 10.6 L (12.0-16.0) g/dL Hct 33.2 L (36.0-46.0) % Cord ABG pH 7.305 (7.18-7.38) Cord ABG Base Excess -6 (-10--2) Cord VBG pH 7.232 L (7.25-7.45) Cord VBG Base Excess -5 (-10--2) Med Orders - Current: Current Medications Acetaminophen (Tylenol Extra Strength) 500 mg PO Q4H PRN PRN Reason: Pain Acetaminophen (Tylenol Extra Strength) 1,000 mg PO Q4H PRN PRN Reason: Pain Al Hydroxide/Mg Hydroxide (Mag-Al Plus) 30 ml PO Q8H PRN PRN Reason: Heartburn Benzocaine/Menthol (Dermoplast Pain Relief 20%-0.5% [place]) 78 gm TOP ASDIRECTED PRN PRN Reason: Perineal Comfort Measure Bisacodyl (Dulcolax) 10 mg RECTAL ONETIME PRN PRN Reason: Constipation Carboprost Tromethamine (Hemabate Ds) 250 mcg IM ASDIRECTED PRN PRN Reason: Post Hemorrhage Docusate Sodium (Colace) 100 mg PO BID PRN PRN Reason: Constipation Emollient Ointment (Lansinoh Hpa) 0 gm TOP ASDIRECTED PRN PRN Reason: Sore Nipples Lactated Ringer's (Ringers, Lactated) 1,000 mls @ 150 mls/hr IV ASDIRECTED JOAN Last Admin: 08/27/18 12:16 Dose: 150 mls/hr Oxytocin/Sodium Chloride (Oxytocin 30 Unit/500 Ml-Ns) 30 unit in 500 mls @ 999 mls/hr IV TITRATE JOAN Oxytocin/Sodium Chloride (Oxytocin 30 Unit/500 Ml-Ns) 30 unit in 500 mls @ 2 mls/hr IV TITRATE JOAN; Protocol Last Titration: 08/27/18 12:15 Dose: 18 munits/min, 18 mls/hr Tranexamic Acid 1,000 mg/ (Sodium Chloride) 110 mls @ 660 mls/hr IV ONETIME PRN PRN Reason: Bleeding Ibuprofen (Motrin) 400 mg PO Q4H PRN PRN Reason: Pain Ibuprofen (Motrin) 800 mg PO Q6H PRN PRN Reason: Pain Last Admin: 08/28/18 06:22 Dose: 800 mg Methylergonovine Maleate (Methergine) 0.2 mg IM ASDIRECTED PRN PRN Reason: Post Hemorrhage Ondansetron HCl (Zofran) 4 mg IVPUSH Q6H PRN PRN Reason: Nausea/Vomiting Oxycodone HCl (Oxycodone) 5 mg PO Q2H PRN PRN Reason: Pain Sodium Chloride (Saline Flush) 10 ml FLUSH ASDIRECTED PRN PRN Reason: Keep Vein Open Sodium Chloride (Saline Flush) 2.5 ml FLUSH ASDIRECTED PRN PRN Reason: Keep Vein Open Sterile Water (Sterile Water For Irrigation) 1,000 ml IRR ASDIRECTED PRN PRN Reason: delivery Witch Roopa (Tucks) 1 pad TOP ASDIRECTED PRN PRN Reason: comfort care Discontinued Medications Butorphanol Tartrate (Stadol) 1 mg IVPUSH ASDIRECTED PRN PRN Reason: Pain Ampicillin Sodium 2 gm/ Sodium (Chloride) 100 mls @ 200 mls/hr IV ONETIME ONE Stop: 08/27/18 06:37 Last Admin: 08/27/18 06:38 Dose: 200 mls/hr Ampicillin Sodium 1 gm/ Sodium (Chloride) 50 mls @ 100 mls/hr IV Q4H JOAN Last Admin: 08/27/18 10:53 Dose: 100 mls/hr Fentanyl/Bupivacaine HCl (Ljdqkyrl-Gktmv-Cb 2 Mcg/Ml-0.125%) Confirm Administered Dose 100 mls @ as directed EP .STK-MED ONE Stop: 08/27/18 11:49 Lidocaine HCl (Xylocaine 1%) 50 ml INJECT ONETIME PRN PRN Reason: Laceration repair Misoprostol (Cytotec) 200 mcg PO ONETIME PRN PRN Reason: Post Hemorrhage Ropivacaine (Naropin 0.2%) Confirm Administered Dose 20 ml .ROUTE .STK-MED ONE Stop: 08/27/18 11:50 Terbutaline Sulfate (Brethine) 0.25 mg SUBCUT ASDIRECTED PRN PRN Reason: Tacysystole - Problem List & Annotations (1) Vaginal delivery SNOMED Code(s): 425329747 Code(s): O80 - ENCOUNTER FOR FULL-TERM UNCOMPLICATED DELIVERY Status: Acute Priority: High Current Visit: No - My Orders Last 24 Hours: My Active Orders 08/27/18 14:13 Patient Status [ADT] Routine May Shower [RC] ASDIRECTED Up ad Lary [RC] ASDIRECTED Vital Signs [RC] PER UNIT ROUTINE Acetaminophen [Tylenol Extra Strength] 1,000 mg PO Q4H PRN Acetaminophen [Tylenol Extra Strength] 500 mg PO Q4H PRN Alum Hydrox/Mag Hydrox/Simeth [Mag-Al Plus] 30 ml PO Q8H PRN Benzocaine/Menthol [Dermoplast Pain Relief 20%-0.5% [place]] 78 gm TOP ASDIRECTED PRN Bisacodyl [Dulcolax] 10 mg RECTAL ONETIME PRN Docusate Sodium [Colace] 100 mg PO BID PRN Ibuprofen [Motrin] 400 mg PO Q4H PRN Ibuprofen [Motrin] 800 mg PO Q6H PRN Lanolin [Lansinoh HPA] See Dose Instructions TOP ASDIRECTED PRN Ondansetron [Zofran] 4 mg IVPUSH Q6H PRN Witch Roopa [Tucks] 1 pad TOP ASDIRECTED PRN oxyCODONE 5 mg PO Q2H PRN Assess Lochia [WOMSER] Per Unit Routine Assess Uterine Involution [WOMSER] Per Unit Routine Peripheral IV Discontinue [OM.PC] Routine 08/27/18 14:14 Ice Therapy [OM.PC] Per Unit Routine Perineal Care [OM.PC] Per Unit Routine Sitz Bath [OM.PC] Per Unit Routine 08/27/18 Lunch Regular Diet [DIET] - Plan Plan:: Patient seen and examined--agree with above
--- NOTE | 2018-08-28 16:10 | PCM48HPAN ---
Post Anesthesia Note - EVALUATION WITHIN 48HRS OF ANESTHETIC Vital Signs in Normal Range: Yes Patient Participated in Evaluation: Yes Respiratory Function Stable: Yes Airway Patent: Yes Cardiovascular Function Stable: Yes Hydration Status Stable: Yes Pain Control Satisfactory: Yes Nausea and Vomiting Control Satisfactory: Yes Mental Status Recovered: Yes Resp Rate: 15
[2018-08-28 18:33] VITALS: BP 117/70
== END 2018-08-28 16:00 | disposition home or self-care (01) | DRG 807 ==
LOC: MW.OBCHECK 05:54 → MW.OB 05:57 → MW.OBCHECK 06:08 → OBSVTOIN 14:02
PROVIDERS: ADMIT Obstetrics & Gynecology; ATTEND Obstetrics & Gynecology
PROC: 10E0XZZ Delivery of Products of Conception, External Approach (ICD-10-PCS; principal; 2018-08-27)
PROC: 3E033VJ Introduction of Other Hormone into Peripheral Vein, Percutaneous Approach (ICD-10-PCS; 2018-08-27)
PROC: 6A550ZT Pheresis of Cord Blood Stem Cells, Single (ICD-10-PCS; 2018-08-27)
PROC: 00HU33Z Insertion of Infusion Device into Spinal Canal, Percutaneous Approach (ICD-10-PCS; 2018-08-27)
DX: O99.824 Streptococcus B carrier state complicating childbirth (principal); Z37.0 Single live birth; O09.43 Supervision of pregnancy with grand multiparity, third trimester; Z3A.39 39 weeks gestation of pregnancy
CPT/HCPCS: 36415; 59025; 59409; 82803; 85014; 85018; 85027; 86850; 86900; 86901; A9270-GY; J0290; J2590; J2795; J7030; J7050; J7120